=== PATIENT | male | born 1985 | race Caucasian/White ===

== ENCOUNTER 2021-06-02 19:12 | Emergency (ER) | payer OTHER ==
[~2021-06-02] VITALS: Ht 180.3 cm; Wt 103.4 kg
[2021-06-02] MEDS ORDERED: CIPR500 PO (19:38)
== END 2021-06-02 19:44 | disposition home or self-care (01) ==
LOC: ER 19:12
DX: S61.431A Puncture wound without foreign body of right hand, initial encounter (principal); Z23 Encounter for immunization; W22.8XXA Striking against or struck by other objects, initial encounter
CPT/HCPCS: 90471; 90714; 99282-25